=== PATIENT | female | born 1975 | race Caucasian/White ===

== ENCOUNTER 2020-02-24 14:21 | Emergency (ER) | payer BC ==
[2020-02-24] MEDS ORDERED: ASPIRIN 81 MG TABLET, CHEWABLE PO ONE (14:34)
--- NOTE | 2020-02-24 14:36 | ER Document Report ---
ED Medical Screen (RME) - General Stated Complaint: BLOOD PRESSURE ISSUES Primary Care Provider: RIP COX MD [Primary Care Provider] - Follow up as needed Mode of Arrival: Medic Information source: Patient Notes: HPI; 45-year-old female past medical history significant for hypertension presents to the emergency room via EMS after complaining of dizziness at work. States her heart rate was elevated 139 with a blood pressure 172/124 patient does have a history of hypertension states she did not take her medication today. Also complaining of some midsternal chest pressure. Did not take any medications for her symptoms. PE: Alert and oriented x3. Lungs: Clear to auscultation without rales, rhonchi, wheezes. Heart: Regular rate rhythm without murmurs, rubs, gallops. EKG was not initially done as patient's complaint was dizziness not chest pain on arrival. I have greeted and performed a rapid initial assessment of this patient. A comprehensive ED assessment and evaluation of the patient, analysis of test results and completion of the medical decision making process will be conducted by additional ED providers. I have specifically instructed the patient or family members with the patient to immediately return to any nursing staff should anything change in the patient's condition or with their chief complaint. TRAVEL OUTSIDE OF THE [place] IN LAST 30 DAYS: No - Related Data Allergies/Adverse Reactions: ciprofloxacin [From Cipro] Allergy (Verified 07/31/11 16:35) ciprofloxacin HCl [From Cipro] Allergy (Verified 07/31/11 16:35) levofloxacin [From Levaquin] Allergy (Verified 07/31/11 16:35) morphine [Morphine] Allergy (Verified 07/31/11 16:35) nalbuphine HCl [From Nubain] Allergy (Verified 07/31/11 16:35) Penicillins Allergy (Verified 07/31/11 16:35) Past Medical History GI Medical History: Reports: Hx Gastroesophageal Reflux Disease Psychiatric Medical History: Reports: Hx Depression Past Surgical History: Reports: Hx Section, Hx Hysterectomy, Hx Orthopedic Surgery - finger surgery fro cat bite, Hx Tonsillectomy - Immunizations Hx Diphtheria, Pertussis, Tetanus Vaccination: Yes Physical Exam - Vital signs Vitals: Temp Pulse Resp BP Pulse Ox 98.0 F 93 18 168/95 H 100 02/24/20 14:26 02/24/20 14:26 02/24/20 14:02/24/20 14:02/24/20 14:26 Course - Vital Signs Vital signs: Temp Pulse Resp BP Pulse Ox 98.0 F 93 18 168/95 H 100 02/24/20 14:26 02/24/20 14:02/24/20 14:02/24/20 14:02/24/20 14:26 Doctor's Discharge - Discharge Referrals: RIP COX MD [Primary Care Provider] - Follow up as needed
[2020-02-24 15:04] LABS: ABSOLUTE EOSINOPHILS # (AUTO) 0.1 10^3/uL (0.0-0.6); ABSOLUTE LYMPHOCYTES (AUTO) 2.2 10^3/uL (0.5-4.7); ABSOLUTE MONOCYTES (AUTO) 0.6 10^3/uL (0.1-1.4); ABSOLUTE NEUT (AUTO) 5.9 10^3/uL (1.7-8.2); BASOPHILS % (AUTO) 0.5 % (0-2); EOSINOPHILS % (AUTO) 0.7 % (0-6); HEMATOCRIT 43.6 % (36.0-47.0); HEMOGLOBIN 15.5 g/dL (12.0-15.5); LYMPHOCYTES % (AUTO) 25.1 % (13-45); MEAN CORPUSCULAR HEMOGLOBIN 33.2 pg (27.0-33.4); MEAN CORPUSCULAR HGB CONC 35.5 g/dL (32.0-36.0); MEAN CORPUSCULAR VOLUME 94 fl (80-97); PLATELET COUNT 323 10^3/uL (150-450); RED BLOOD COUNT 4.66 10^6/uL (3.72-5.28); RED CELL DISTRIBUTION WIDTH 13.2 % (11.5-14.0); SEGMENTED NEUTROPHILS % (AUTO) 66.7 % (42-78); TOTAL CELLS COUNTED % (AUTO) 100 %; WHITE BLOOD COUNT 8.8 10^3/uL (4.0-10.5)
[2020-02-24 15:25] LABS: ALBUMIN 4.6 g/dL (3.5-5.0); ALKALINE PHOSPHATASE 85 U/L (38-126); ANION GAP 7 (5-19); ASPARTATE AMINO TRANSFERASE 33 U/L (14-36); BILIRUBIN,DIRECT 0.3 mg/dL (0.0-0.4); BLOOD UREA NITROGEN 10 mg/dL (7-20); CALCIUM 9.7 mg/dL (8.4-10.2); CARBON DIOXIDE 31 mmol/L (22-30); CHLORIDE 97 mmol/L (98-107); CREATINE KINASE 53 U/L (30-135); GLUCOSE 93 mg/dL (75-110); POTASSIUM 3.8 mmol/L (3.6-5.0); TOTAL PROTEIN 7.1 g/dL (6.3-8.2)
[2020-02-24 15:34] LABS: CREATINE KINASE MB 0.52 ng/mL (<4.55)
--- NOTE | 2020-02-24 15:37 | RADIOLOGY REPORT (SQ) ---
EXAM DESCRIPTION: CHEST 2 VIEWS IMAGES COMPLETED DATE/TIME: 02/24/2020 3:30 pm REASON FOR STUDY: chest pain COMPARISON: None. EXAM PARAMETERS: NUMBER OF VIEWS: two views TECHNIQUE: Digital Frontal and Lateral radiographic views of the chest acquired. RADIATION DOSE: NA LIMITATIONS: none FINDINGS: LUNGS AND PLEURA: No opacities, masses or pneumothorax. No pleural effusion. MEDIASTINUM AND HILAR STRUCTURES: No masses or contour abnormalities. HEART AND VASCULAR STRUCTURES: Heart normal size. No evidence for failure. BONES: No acute findings. HARDWARE: None in the chest. OTHER: No other significant finding. IMPRESSION: NO ACUTE RADIOGRAPHIC FINDING IN THE CHEST. TECHNICAL DOCUMENTATION: JOB ID: [id number] 2010 [employer]- All Rights Reserved Reading location - IP/workstation name: [email or web address]
[2020-02-24 15:53] LABS: TROPONIN I < 0.012 ng/mL
[2020-02-24] MEDS ORDERED: ASPIRIN 81 MG TABLET, CHEWABLE ONE (18:55)
--- NOTE | 2020-02-24 19:24 | ER Document Report ---
ED General - General Chief Complaint: High Blood Pressure Stated Complaint: BLOOD PRESSURE ISSUES Time Seen by Provider: 02/24/20 14:39 Primary Care Provider: RIP COX MD [Primary Care Provider] - Follow up as needed Mode of Arrival: Ambulatory Information source: Patient Notes: Patient is a 45-year-old female with history of hypertension on hyd rochlorothiazide coming in today for a dizzy spell that happened around 1030 this morning at work. She was standing at work and became profoundly dizzy and almost fell. She had a ReachOut to grab something shows she would not fall. In any event her Apple Watch indicated that her heart rate was in the 140s at the time. She had some mild chest pain. Came in to be further evaluated. TRAVEL OUTSIDE OF THE [place] IN LAST 30 DAYS: No - Related Data Allergies/Adverse Reactions: ciprofloxacin [From Cipro] Allergy (Verified 07/31/11 16:35) ciprofloxacin HCl [From Cipro] Allergy (Verified 07/31/11 16:35) levofloxacin [From Levaquin] Allergy (Verified 07/31/11 16:35) morphine [Morphine] Allergy (Verified 07/31/11 16:35) nalbuphine HCl [From Nubain] Allergy (Verified 07/31/11 16:35) Penicillins Allergy (Verified 07/31/11 16:35) Home Medications: hctz, zoloft, multivitamin Past Medical History - General Information source: Patient - Social History Smoking Status: Never Smoker Chew tobacco use (# tins/day): No Frequency of alcohol use: None Drug Abuse: None Family History: Hypertension, Malignancy Patient has homicidal ideation: No GI Medical History: Reports: Hx Gastroesophageal Reflux Disease Psychiatric Medical History: Reports: Hx Depression Past Surgical History: Reports: Hx Section, Hx Hysterectomy, Hx Orthopedic Surgery - finger surgery fro cat bite, Hx Tonsillectomy - Immunizations Hx Diphtheria, Pertussis, Tetanus Vaccination: Yes Review of Systems - Review of Systems Notes: Constitutional: No fevers. No chills. EENT: No eye redness. No eye pain. No ear pain. No sore throat. Cardiovascular: + chest pain. No palpitations. Respiratory: No cough. No shortness of breath. No respiratory distress. Gastrointestinal: No abdominal pain. No nausea, vomiting, or diarrhea. Genitourinary: Atraumatic. No lesions. No pain. No discharge. Musculoskeletal: Atraumatic. No swelling. No deformities. Skin: No rash or lesions. Lymphatic: No swollen lymph nodes. Neurologic: + Dizziness, near syncope Psychiatric: No suicidal or homicidal ideation. Physical Exam - Vital signs Vitals: Temp Pulse Resp BP Pulse Ox 98.0 F 93 18 168/95 H 100 02/24/20 14:02/24/20 14:02/24/20 14:02/24/20 14:02/24/20 14:26 - Notes Notes: General: Well-developed, well-nourished. In no acute distress. Non-toxic appearing. Cardiac: Well-perfused. Regular rate and rhythm. No murmurs, rubs, or gallops. Pulmonary: No respiratory distress. No cyanosis. Bilateral lung collins are clear to auscultation. Abdominal: Non-distended. Non-rigid. Bowels sounds are present in all four quadrants. No guarding or rebound. HEENT: Head is atraumatic. Conjunctivae not reddened. No tearing. PERRL. EOMI. Orbits atraumatic. No periorbital swelling or erythema. Oropharynx is without erythema, swelling, or exudates. Neck: Supple. No adenopathy. No meningismus. Dermatologic: Warm with good turgor. No rash. Atraumatic. Chest: Atraumatic. No chest wall tenderness to palpation. Musculoskeletal: Moves all extremities well. No range of motion deficits. no muscular or joint tenderness. No paraspinal muscle tenderness. no midline spinal tenderness or step-off. Genitourinary: Examination deferred Neurologic: No gross neurologic deficits. Psychiatric: Normal mood. Course - Re-evaluation Re-evalutation: 02/24/20 19:[address] Doran who is on-call for cardiology. He is aware of the patient's situation. He will have his office call the patient to set up for follow-up. - Vital Signs Vital signs: Temp Pulse Resp BP Pulse Ox 98.0 F 93 18 168/95 H 100 02/24/20 14:02/24/20 14:02/24/20 14:02/24/20 14:02/24/20 14:26 - Laboratory Result Diagrams: 02/24/20 14:48 02/24/20 14:48 Laboratory results interpreted by me: 02/24/20 14:48 Sodium 134.8 L Chloride 97 L Carbon Dioxide 31 H - EKG Interpretation by Me EKG shows normal: Sinus rhythm Rate: Normal Rhythm: NSR Discharge - Discharge Clinical Impression: Dizziness, Near syncope, Elevated blood pressure reading Condition: Good Disposition: HOME, SELF-CARE Instructions: High Blood Pressure ([facility]) Additional Instructions: Dr. Doran, the insulating machine operator, is aware of your situation. A financial sales representative from his office will contact you to set up an appointment. Forms: Elevated Blood Pressure, Return to Work Referrals: RIP COX MD [Primary Care Provider] - Follow up as needed
[2020-02-24 19:48] VITALS: BP 148/89
--- NOTE | 2020-02-25 08:35 | EKG REPORT ---
SEVERITY:- NORMAL ECG - SINUS RHYTHM : Confirmed by: Caryl Carrera MD 25-Feb-2020 08:34:56
== END 2020-02-24 19:46 | disposition home or self-care (01) ==
LOC: ER 14:21
DX: R42 Dizziness and giddiness (principal); I10 Essential (primary) hypertension; R55 Syncope and collapse; R07.9 Chest pain, unspecified
CPT/HCPCS: 36415; 71046; 80053; 82550; 82553; 84484; 85025; 93005; 93010; 99285